=== PATIENT | male | born 1995 | race Caucasian/White ===

== ENCOUNTER 2024-05-16 09:46 | Emergency (ER) | payer BC, OTHER ==
[2024-05-16] MEDS: Ondansetron 4 MG Tab.DIS PO STA (10:46)
== END 2024-05-16 12:28 | disposition home or self-care (01) ==
LOC: MW.ED 09:46
DX: J10.1 Influenza due to other identified influenza virus with other respiratory manifestations (principal); Z75.8 Other problems related to medical facilities and other health care; Z79.899 Other long term (current) drug therapy
CPT/HCPCS: 87428; 87651; 99283; A9270